=== PATIENT | male | born 2000 | race Caucasian/White ===

== ENCOUNTER 2023-07-16 11:50 | Inpatient (IN) | payer OTHER ==
[2023-07-16 12:04] VITALS: BMI 31.1
[2023-07-16] MEDS ORDERED: KETOROLAC TROMETHAMINE 30 MG/1 ML VIAL IM ONE (12:36)
[2023-07-16] MEDS ORDERED: KETOROLAC TROMETHAMINE 30 MG/1 ML VIAL ONE ×2 (12:50→12:52)
[2023-07-16] MEDS ORDERED: SODIUM CHLORIDE 0.9% 500 ML INFUS.BAG IV ONE (13:15)
[2023-07-16] MEDS ORDERED: ACETAMINOPHEN 1000 MG/100 ML BAG IVPB ONE (13:15)
[2023-07-16] MEDS ORDERED: ACETAMINOPHEN INJECTION 100 ML IVPB ONE (13:44)
[2023-07-16 13:51] LABS: BASO % 0.2 % (0-2.0); EOS % 0.3 % (0-4.5); HEMATOCRIT 46.4 % (35.4-49); LYMPH % 7.8 % (8-40); MCH 28.6 pg (25.7-33.7); MCHC 34.5 g/dl (32.0-35.9); MEAN CELL VOLUME 82.9 fl (80-96); MEAN PLT VOLUME 8.2 fl (7.5-11.1); MONO % 10.3 % (3.8-10.2); NEUT % 81.4 % (42.8-82.8); PLATELET COUNT 176 10^3/uL (134-434); RDW 14.1 % (11.9-15.9); WHITE BLOOD COUNT 13.7 K/mm3 (4.0-10.0)
[2023-07-16 13:58] LABS: INR 1.51 (0.83-1.09); PROTHROMBIN TIME (PATIENT) 17.5 SEC (9.7-13.0)
[2023-07-16 14:01] LABS: ACTIVATED PTT 33.8 SECONDS (25.2-36.5)
[2023-07-16 14:12] LABS: POTASSIUM 3.7 mmol/L (3.5-5.1)
[2023-07-16 14:14] LABS: CALCIUM 9.1 mg/dL (8.5-10.1)
[2023-07-16 14:15] LABS: ALBUMIN 3.7 g/dl (3.4-5.0); BLOOD UREA NITROGEN 30.8 mg/dL (7-18)
[2023-07-16 14:18] LABS: CREATININE 2.3 mg/dL (0.55-1.3)
[2023-07-16 14:19] LABS: BILIRUBIN,TOTAL 0.9 mg/dL (0.2-1); TOT PROT 6.9 g/dl (6.4-8.2)
[2023-07-16 14:25] LABS: URINE APPEARANCE TURBID; URINE BILIRUBIN NEGATIVE (NEGATIVE); URINE COLOR YELLOW; URINE GLUCOSE (UA) NEGATIVE (NEGATIVE); URINE KETONE NEGATIVE (NEGATIVE); URINE NITRITE POSITIVE (NEGATIVE); URINE PROTEIN 3+ (NEGATIVE); URINE UROBILINOGEN 0.2 mg/dL (0.2-1.0)
[2023-07-16 14:26] LABS: EPI CELLS 45 /uL (0-25.1); HYALINE CASTS 676 /uL (0-3.1); URINE BACTERIA 1287 /uL (0-1359); URINE LEUK ESTERASE 3+ (NEGATIVE); URINE RBC 571 /uL (0-23.9); URINE WBC 19620 /uL (0-25.8)
[2023-07-16] MEDS ORDERED: PIPERACILLIN/TAZOB 4.5 GM 4.5 GM in DEXTROSE 5%-WATER 100 ML IVPB ONE (15:11)
[2023-07-16] MEDS ORDERED: PIPERACILLIN/TAZOB 4.5 GM 4.5 GM/100 ML BAG IVPB ONE (15:18)
[2023-07-16] MEDS ORDERED: PIPERACILLIN/TAZOB 3.375 GM 3.375 GM in DEXTROSE 5%-WATER - 50 ML IVPB ONE (15:35)
[2023-07-16] MEDS ORDERED: PIPERACILLIN/TAZOB 3.375 GM 3.375 GM/50 ML BAG IVPB ONE (15:43)
[2023-07-16] MEDS: SODIUM CHLORIDE 0.45% 1,000 ML IV SCH (17:46)
[2023-07-16] MEDS: PIPERACILLIN/TAZOB 2.25 GM 2.25 GM in DEXTROSE 5%-WATER - 50 ML IVPB SCH (20:17)
[2023-07-17] MEDS: PIPERACILLIN/TAZOB 2.25 GM 2.25 GM in DEXTROSE 5%-WATER - 50 ML IVPB SCH ×5 (02:59→21:14)
[2023-07-17] MEDS: SODIUM CHLORIDE 0.45% 1,000 ML IV SCH ×3 (07:49→21:53)
[2023-07-17 11:39] LABS: HEMATOCRIT 43.8 % (35.4-49); HEMOGLOBIN 15.2 GM/dL (11.7-16.9); MCHC 34.8 g/dl (32.0-35.9); MEAN CELL VOLUME 83.5 fl (80-96); MEAN PLT VOLUME 8.5 fl (7.5-11.1); PLATELET COUNT 155 10^3/uL (134-434); RBC 5.25 M/mm3 (4.00-5.60); RDW 14.7 % (11.9-15.9); WHITE BLOOD COUNT 8.1 K/mm3 (4.0-10.0)
[2023-07-17 11:44] LABS: BLOOD UREA NITROGEN 32.4 mg/dL (7-18); CALCIUM 9.4 mg/dL (8.5-10.1); MAGNESIUM 2.2 mg/dL (1.8-2.4)
[2023-07-17 11:48] LABS: CREATININE 2.3 mg/dL (0.55-1.3); PHOSPHOROUS 2.3 mg/dL (2.5-4.9)
[2023-07-17] MEDS ORDERED: PIPERACILLIN/TAZOB 2.25 GM 2.25 GM in DEXTROSE 5%-WATER - 50 ML IVPB SCH (12:30)
[2023-07-18] MEDS: PIPERACILLIN/TAZOB 2.25 GM 2.25 GM in DEXTROSE 5%-WATER - 50 ML IVPB SCH ×2 (01:41→09:12)
[2023-07-18] MEDS: levETIRAcetam 500 MG TABLET (FP) PO SCH ×2 (09:12→21:39)
[2023-07-18] MEDS: SODIUM CHLORIDE 0.45% 1,000 ML IV SCH (16:36)
[2023-07-18] MEDS: CEFAZOLIN 1 GM in DEXTROSE 5%-WATER - 50 ML IVPB SCH (18:08)
[2023-07-19] MEDS: CEFAZOLIN 1 GM in DEXTROSE 5%-WATER - 50 ML IVPB SCH ×2 (01:37→09:38)
[2023-07-19 06:40] VITALS: BP 100/60; PULSE 64; RESP 17; TEMP 97.5
[2023-07-19] MEDS: levETIRAcetam 500 MG TABLET (FP) PO SCH (09:38)
[2023-07-19 09:42] LABS: HEMATOCRIT 47.3 % (35.4-49); HEMOGLOBIN 16.3 GM/dL (11.7-16.9); MCHC 34.4 g/dl (32.0-35.9); MEAN CELL VOLUME 84.2 fl (80-96); MEAN PLT VOLUME 8.1 fl (7.5-11.1); PLATELET COUNT 198 10^3/uL (134-434); RBC 5.61 M/mm3 (4.00-5.60); RDW 14.7 % (11.9-15.9); WHITE BLOOD COUNT 5.6 K/mm3 (4.0-10.0)
[2023-07-19 10:02] LABS: POTASSIUM 4.2 mmol/L (3.5-5.1)
[2023-07-19 10:38] LABS: BLOOD UREA NITROGEN 26.8 mg/dL (7-18)
[2023-07-19 10:39] LABS: CALCIUM 9.6 mg/dL (8.5-10.1)
[2023-07-19 10:40] LABS: ALBUMIN 3.6 g/dl (3.4-5.0)
[2023-07-19 10:43] LABS: CREATININE 2.2 mg/dL (0.55-1.3)
[2023-07-19 10:44] LABS: TOT PROT 6.9 g/dl (6.4-8.2)
[2023-07-19 10:45] LABS: BILIRUBIN,TOTAL 0.4 mg/dL (0.2-1)
== END 2023-07-19 11:13 | disposition home or self-care (01) | DRG 690 ==
LOC: JER 11:50 → JERBED 14:17 → J5S 20:05
PROVIDERS: ADMIT Internal Medicine; ATTEND Internal Medicine
DX: N13.6 Pyonephrosis (principal); Q64.32 Congenital stricture of urethra; N17.9 Acute kidney failure, unspecified; N18.9 Chronic kidney disease, unspecified; R33.9 Retention of urine, unspecified; G93.9 Disorder of brain, unspecified; B96.20 Unspecified Escherichia coli [E. coli] as the cause of diseases classified elsewhere; R56.9 Unspecified convulsions; R00.0 Tachycardia, unspecified
CPT/HCPCS: 36415; 74176-TC; 80048; 80053; 81003; 83605; 83735; 84100; 84443; 85025; 85027; 85610; 85730; 87040; 87086; 87186; 93005; 93010; 99285-25; J0131

== ENCOUNTER 2023-10-01 14:17 | Emergency (ER) | payer OTHER ==
[2023-10-01 14:23] VITALS: BP 113/75; PULSE 84; RESP 18; TEMP 98; BMI 30.1
== END 2023-10-01 16:16 | disposition home or self-care (01) ==
LOC: JERFT 14:17
DX: M79.672 Pain in left foot (principal)
CPT/HCPCS: 73630-TC-LT; 99283-25